=== PATIENT | female | born 1980 | race Caucasian/White ===

== ENCOUNTER 2020-09-09 16:40 | Emergency (ER) | payer BC, SELFPAY ==
[2020-09-09 16:53] VITALS: BP 119/80; PULSE 99; RESP 16; TEMP 36.8; O2SAT 99
--- NOTE | 2020-09-09 17:10 | ED.URI ---
HPI - URI/Sore Throat General Chief Complaint: Upper Respiratory Infection Stated Complaint: sore throat Source: patient Mode of arrival: ambulatory Limitations: no limitations History of Present Illness HPI Narrative: Patient is a 39-year-old female who presents complaining of sore throat x2 days. She reports mild allergy-like symptoms yesterday, denies fever. Reports exposure to strep throat and potentially Covid at work. Patient is in no acute distress at this time, has not MD elicited complaint: sore throat Related Data Home Medications Medication Instructions Recorded Confirmed escitalopram oxalate 20 mg PO DAILY 09/09/20 09/09/20 Allergies Allergy/AdvReac Type Severity Reaction Status Date / Time No Known Allergies Allergy Verified 09/09/20 17:09 Review of Systems Review of Systems: Narrative: CONSTITUTIONAL: Denies fever, chills, or sweats. EYES: Denies visual changes, redness, or discharge. ENT: Reports sore throat CARDIOVASCULAR: Denies chest pain, palpitations, or edema. RESPIRATORY: Denies cough or dyspnea. GASTROINTESTINAL: Denies abdominal pain, nausea, vomiting, or diarrhea. GENITOURINARY: Denies dysuria or hematuria. SKIN: Denies rash or itching. MUSCULOSKELETAL: Denies back pain, joint pain, or myalgia. NEUROLOGIC: Denies headache, numbness, dizziness, or weakness. PSYCHIATRIC: Denies anxiety or depression. [facility] Past Medical History Medical History (Updated 09/09/20 @ 17:17 by SOL Nicolas) Anxiety Bronchitis Depression Ectopic GERD (gastroesophageal reflux disease) Migraines No significant past medical history PVCs (premature ventricular contractions) Spontaneous pneumothorax Social History Social History (Updated 09/09/20 @ 17:13 by SOL Nicolas) Smoking status: Current every day smoker Tobacco type: e-cigarettes/vaping Alcohol intake: never Substance use: never Living arrangements: with family Exam Narrative: Exam Narrative: GENERAL: Well-appearing, well-nourished, and in no acute distress. HEAD: Normocephalic, atraumatic. EYES: No redness or drainage. ENT: Mucous membranes pink and moist. Throat normal mild erythema, no edema or exudate. Uvula midline. NECK: AROM. Supple. No lymphadenopathy. CHEST: No respiratory distress. EXTREMITIES: Normal range of motion. SKIN: Warm, dry, no rash. NEURO: No focal deficits. Alert and oriented x3. Gait steady. PSYCH: Normal affect. No signs of depression or anxiety. Course Vital Signs Vital signs: Vital Signs Temperature 36.8 C 09/09/20 16:53 Pulse Rate 99 09/09/20 16:53 Respiratory Rate 16 09/09/20 16:53 Blood Pressure 119/80 09/09/20 16:53 Pulse Oximetry 99 09/09/20 16:53 Temperature 36.8 C 09/09/20 16:53 Pulse Rate 99 09/09/20 16:53 Respiratory Rate 16 09/09/20 16:53 Blood Pressure 119/80 09/09/20 16:53 Pulse Oximetry 99 09/09/20 16:53 MDM - URI/Sore Throat MDM Narrative Medical decision making narrative: Patient's rapid staff and influenza are negative at this time. Patient to be sent for Covid testing. Patient aware of the need for quarantine until testing completed. Patient is stable for discharge home with outpatient follow-up as needed. Patient is aware if she develops chest pain or shortness of breath, that she is to go to the emergency department for further evaluation. Differential Diagnosis Differential diagnosis: Likely upper respiratory infection, viral infection, bronchitis and pharyngitis Medical Records Attestation: I reviewed the patient's medical records. Lab Data Attestation: I reviewed the patient's lab results. Critical Care Time Critical Care Time Critical Care Time: No Discharge Plan Discharge Clinical Impression: Encounter for screening laboratory testing for COVID-19 virus Upper respiratory infection Qualifiers: URI type: unspecified URI Qualified Code(s): J06.9 - Acute upper respiratory infection, unsp
== END 2020-09-09 17:20 | disposition home or self-care (01) ==
PROVIDERS: Emergency Provider Nurse Practitioner; PCP Physician Assistant
DX: Z20.828 Contact with and (suspected) exposure to other viral communicable diseases (principal); J06.9 Acute upper respiratory infection, unspecified; K21.9 Gastro-esophageal reflux disease without esophagitis; F17.200 Nicotine dependence, unspecified, uncomplicated; F41.9 Anxiety disorder, unspecified; F32.9 Major depressive disorder, single episode, unspecified
CPT/HCPCS: 87081; 87804; 87880; 99213; G0463

== ENCOUNTER → 2020-09-11 | Outpatient (NON) | payer BC, SELFPAY ==
[2020-09-11 19:47] LABS: SARS-CoV-2 RNA PCR Negative
== END | disposition home or self-care (01) ==
LOC: ANHCOVIDDT 07:03
PROVIDERS: PCP Physician Assistant; Visit Provider Nurse Practitioner
DX: Z20.828 Contact with and (suspected) exposure to other viral communicable diseases (principal)
CPT/HCPCS: 87635; C9803; U0003

== ENCOUNTER 2020-09-20 06:53 | Outpatient (NON) | payer BC, SELFPAY ==
[2020-09-20 21:00] LABS: SARS-CoV-2 RNA PCR Positive
== END 2020-09-20 06:54 ==
LOC: ANHCOVIDDT 07:08
PROVIDERS: PCP Physician Assistant; Visit Provider Physician Assistant
DX: U07.1 COVID-19 (principal)
CPT/HCPCS: 87635; C9803; U0003

== ENCOUNTER 2020-09-20 10:51 | Outpatient (CLI) | payer BC, SELFPAY ==
--- NOTE | ~2020-09-20 | XR_ITS ---
EXAMINATION: XR chest 2V EXAM DATE: 09/20/2020 11:15 INDICATION: Cough, loss of taste, smell 1-2 days ago. COVID symptoms. TECHNIQUE: Frontal and lateral projections of the chest obtained and reviewed. Comparison is made to prior examination from 04/28/2018. FINDINGS: Left apical suture material. The lungs are clear. There are no pleural effusions. The car diomediastinal silhouette is within normal limits. There is no pneumothorax suspected. The bones an d soft tissues are unremarkable. IMPRESSION: No acute cardiopulmonary findings. Reviewed, dictated and finalized at location A. YLENE BURNER
== END 2020-09-20 10:52 | disposition home or self-care (01) ==
PROVIDERS: PCP Physician Assistant; Visit Provider Physician Assistant
DX: R05 Cough (principal)
CPT/HCPCS: 71046

== ENCOUNTER 2021-02-04 14:38 | Emergency (ER) | payer BC, SELFPAY ==
--- NOTE | 2021-02-04 14:49 | ED.GENADULT ---
HPI - General Adult General Chief complaint: Upper Respiratory Infection Stated complaint: sore throat/dizzy Time Seen by Provider: 02/04/21 14:49 Source: patient, RN notes reviewed and old records reviewed Mode of arrival: ambulatory Limitations: no limitations History of Present Illness HPI narrative: 40 year old female who presents to [facility] care with complaints of sore throat, dry cough,some feelings of nasal congestion and mild shortness of breath for the past 3 day with some intermittent dizziness. Patient states that she had COVID in September of 2020. Patient states that her throat aches rates it a 4/10 and states that pain increases with swallowing. She verbalizes tactile fever with some chills or sweats, has taken some Dayquil for her symptoms. Patient has even and nonlabored respirations, with no tachypnea or accessory muscle use, breath sounds clear and present in all lung brownlee on auscultation. MD complaint: sore throat Onset (ago): day(s) (3) Severity: moderate Severity scale (1-10): 4 Quality: aching Pain Consistency: constant Relieving factors: eating and other (swallowing) Exacerbating factors: eating Associated symptoms: cough, fever/chills, shortness of breath and other (dizziness intermittently, sinus congestion) Treatments prior to arrival: other (Dayquil) Related Data Home Medications Medication Instructions Recorded Confirmed escitalopram oxalate 20 mg PO DAILY 09/09/20 02/04/21 bupropion HCl 300 mg PO DAILY 02/04/21 02/04/21 Allergies Allergy/AdvReac Type Severity Reaction Status Date / Time No Known Allergies Allergy Verified 02/04/21 15:10 Review of Systems Review of Systems: Narrative: CONSTITUTIONAL: Tactile fever, chills, or sweats. EYES: Denies visual changes, redness, or discharge. ENT: Positive rhinorrhea, congestion, sore throat, denies otalgia. CARDIOVASCULAR: Denies chest pain, palpitations, or edema. RESPIRATORY: Positive dry cough some mild dyspnea with exertion GASTROINTESTINAL: Denies abdominal pain, nausea, vomiting, or diarrhea. GENITOURINARY: Denies dysuria or hematuria. SKIN: Denies rash or itching. MUSCULOSKELETAL: Denies back pain, joint pain, or myalgia. NEUROLOGIC: Denies headache, numbness, or weakness.intermittent dizziness PSYCHIATRIC: Positive history of anxiety or depression. All systems reviewed & are unremarkable except as noted in HPI and below PMFSH Past Medical History Medical History (Updated 02/06/21 @ 15:14 by Evie Ovalle NP) Anxiety Bronchitis Depression Ectopic , tubal removal of fallopian tube GERD (gastroesophageal reflux disease) Migraines No significant past medical history PVCs (premature ventricular contractions) Spontaneous pneumothorax UTI (urinary tract infection) Surgical History Surgical History (Updated 02/04/21 @ 15:02 by Evie Ovalle NP) Previous section Social History Social History (Updated 02/04/21 @ 15:02 by Evie Ovalle NP) Smoking status: Current every day smoker Tobacco type: e-cigarettes/vaping Alcohol intake: never Substance use: never Living arrangements: with family Gender identity (if verbalized by the patient): Female Comments At time of signature, agree with nursing past medical, surgical, social and family history. There is no relevant family history pertinent to the presenting complaint Exam Narrative: Exam Narrative: GENERAL: Well-appearing, well-nourished, and in no acute distress. HEAD: Normocephalic, atraumatic. EYES: PERRLA and EOMI. ENT: Nares red, clear rhinorrhea no epistaxis. Mucous membranes moist.TM's normal with good light reflex, throat red with no lesions or exudates, tonsils enlarged and swollen with pain with swallowing, post nasal drainage noted NECK: Supple.no lymphadenopathy CHEST: Clear to auscultation. No respiratory distress.dry cough, lung sounds present in all lung brownlee. SAO2 100% on room air. HEART: Regular rate and rhythm. No murmur
[2021-02-04 14:50] VITALS: BP 131/85; PULSE 84; RESP 12; TEMP 37.5; O2SAT 100
== END 2021-02-04 15:25 | disposition home or self-care (01) ==
PROVIDERS: Emergency Provider Registered Nurse; PCP Physician Assistant
DX: R42 Dizziness and giddiness (principal); J02.9 Acute pharyngitis, unspecified; F17.200 Nicotine dependence, unspecified, uncomplicated; K21.9 Gastro-esophageal reflux disease without esophagitis; F41.9 Anxiety disorder, unspecified; F32.9 Major depressive disorder, single episode, unspecified
CPT/HCPCS: 87081; 87880; 99213; G0463

== ENCOUNTER 2021-06-14 10:10 | Emergency (ER) | payer BC, SELFPAY ==
[2021-06-14 10:19] VITALS: BP 112/68; PULSE 106; RESP 15; TEMP 36.6; O2SAT 98
[2021-06-14 10:27] LABS: Basophils Percent Auto 0.4 % (0.2-1.2); Eosinophils Percent Auto 0.1 % (0-4.4); Hematocrit 39.1 % (37.0-47.0); Hemoglobin 12.7 g/dL (12.0-15.0); Immature Granulocyte Absolute 0.04 K/mm3 (0.00-0.031); Immature Granulocyte Percent A 0.4 % (0-0.5); Lymphocytes Absolute Auto 1.22 K/mm3 (0.9-3.2); Lymphocytes Percent Auto 12.3 % (18.3-44.2); Mean Corpuscular HGB Conc 32.5 g/dl (32-36); Mean Corpuscular Hemoglobin 30.1 pg (26-34); Mean Corpuscular Volume 92.7 fl (80-100); Mean Platelet Volume 9.9 fl (7.4-10.4); Monocytes Absolute Auto 0.8 K/mm3 (0.1-0.6); Monocytes Percent Auto 8.5 % (2.6-8.5); Neutrophils Absolute Auto 7.8 K/mm3 (1.3-6.7); Neutrophils Percent Auto 78.3 % (45.5-73.1); Platelet Count Result 221 k/mm3 (150-375); Red Blood Count 4.22 M/mm3 (4.2-5.4); Red Cell Distribution Width 13.2 % (11.5-14.5); White Blood Count 9.9 K/mm3 (4.5-10.0)
[2021-06-14 11:02] LABS: Alanine Aminotransferase 29 U/L (4-35); Albumin Level 3.7 g/dL (3.5-5.1); Alkaline Phosphatase 58 U/L (38-126); Anion Gap 6 mmol/L (8-16); Aspartate Amino Transferase 28 U/L (14-36); Bilirubin,Total 0.2 mg/dL (0.2-1.3); Blood Urea Nitrogen 12 mg/dL (7-17); Calcium 9.3 mg/dL (8.4-10.2); Carbon Dioxide 29 mmol/L (22-30); Chloride 105 mmol/L (98-107); Estimated CRCL calculation 62 ml/min; Estimated Glomerular Filt Rate > 60; Glucose 81 mg/dL (65-110); Lipase 37 U/L (23-300); Potassium 3.1 mmol/L (3.4-5.0); Sodium 140 mmol/L (137-145)
--- NOTE | 2021-06-14 11:21 | ED.ABDPAIN ---
HPI - Abdominal Pain General Chief Complaint: Abdominal Pain Stated Complaint: right flank pain Time Seen by Provider: 06/14/21 11:10 History of Present Illness HPI narrative: Right mid back pain for the past few days. She reports that she had an outpatient UA and x-rays done that were all negative. The pain is worse with breathing and twisting movements. She had a fever of 102 this morning. No urinary symptoms. No cough, congestion, sob. She has a h/o kidney infection. Related Data Home Medications Medication Instructions Recorded Confirmed escitalopram oxalate 20 mg PO DAILY 09/09/20 02/04/21 bupropion HCl 300 mg PO DAILY 02/04/21 02/04/21 Allergies Allergy/AdvReac Type Severity Reaction Status Date / Time No Known Allergies Allergy Verified 06/14/21 12:04 Review of Systems Review of Systems: All systems reviewed & are unremarkable except as noted in HPI and below Constitutional: Constitutional: Reports fever(s) and Denies weakness Eyes: Eyes: Reports no additional eye complaints ENT: Denies sore throat Cardiovascular: Cardiovascular: Denies chest pain Respiratory: Respiratory: Denies cough and Denies dyspnea Gastrointestinal: Gastrointestinal: Denies abdominal pain, Denies constipation, Denies diarrhea, Reports nausea and Denies vomiting Genitourinary: Genitourinary: Denies hematuria and Denies dysuria Musculoskeletal: Musculoskeletal: Reports back pain PMFSH Past Medical History Medical History Anxiety Bronchitis Depression Ectopic , tubal removal of fallopian tube GERD (gastroesophageal reflux disease) Migraines No significant past medical history PVCs (premature ventricular contractions) Spontaneous pneumothorax UTI (urinary tract infection) Surgical History Surgical History Previous section Social History Social History Smoking status: Current every day smoker Tobacco type: e-cigarettes/vaping Alcohol intake: never Substance use: never Gender identity (if verbalized by the patient): Female Exam Const: General: healthy appearing, no acute distress and alert Orientation/consciousness: patient oriented x3 HENMT: Head: normal to inspection Neck: Neck: normal visual inspection Resp: Effort & Inspection: normal respiratory effort Auscultation: clear to auscultation bilaterally, no rales, no rhonchi and no wheezes Cardio: Jugular venous distension: no JVD Rate: regular rate Rhythm: regular rhythm Heart sounds: no murmurs GI: Inspection: non-distended GI Palp: Yes Soft to palpation and No Tenderness to palpation present (GI) : General: Yes CVA tenderness on the right Skin: General skin exam: normal color Neuro: General: patient oriented x3 and moves all extremities Speech: normal speech Extrem: General: normal to inspection Psych: Appearance: well kempt Affect: normal affect Course Vital Signs Vital signs: Vital Signs Temperature 36.6 C 06/14/21 10:19 Pulse Rate 106 H 06/14/21 10:19 Respiratory Rate 15 06/14/21 10:19 Blood Pressure 112/68 06/14/21 10:19 Pulse Oximetry 98 06/14/21 10:19 Temperature 36.6 C 06/14/21 10:19 Pulse Rate 94 06/14/21 12:07 Respiratory Rate 16 06/14/21 12:07 Blood Pressure 101/67 06/14/21 12:07 Pulse Oximetry 99 06/14/21 12:07 MDM - Abdominal Pain MDM Narrative Medical decision making narrative: UA consistent with infection. Clinically she may have mild pyelonephritis. She seems to be stable for outpatient treatment. Medical Records Attestation: I reviewed the patient's medical records. Lab Data Attestation: I reviewed the patient's lab results. Result diagrams: 06/14/21 10:17 06/14/21 10:17 Labs: Lab Results 06/14/21 06/14/21 06/14/21 Range/Units 10:17 10:17 10
[2021-06-14 11:35] LABS: Add Urine Microscopic? YES; Appearance Urine Cloudy (Clear); Bacteria Urine Trace /hpf; Bilirubin Urine Negative (Negative); Blood Urine Negative (Negative); Color Urine Yellow (Yellow); Glucose Urine UA Negative (Negative); Ketones Urine Negative (Negative); Leukocyte Esterase Ur 3+ LEU/UL (Negative); Mucus Urine Rare /lpf; Nitrate Urine Negative (Negative); Protein Urine 1+ mg/dL (Negative); RBC Urine 0-2 /hpf (0-2); Specific Grav Ur 1.013 (1.001-1.035); Squamous Epithelial Cell Urine Many /hpf (Few); Urobilinogen Urine Negative mg/dL (<2.0); WBC Urine >75 /hpf
[2021-06-14 12:07] VITALS: BP 101/67; PULSE 94; RESP 16; O2SAT 99
[2021-06-14] MEDS: CEFDINIR 300 MG CAPSULE PO (12:54)
[2021-06-14 13:39] VITALS: BP 101/66; PULSE 87; RESP 18; TEMP 36.2; O2SAT 100
== END 2021-06-14 13:42 | disposition home or self-care (01) ==
PROVIDERS: Emergency Provider Emergency Medicine; PCP Physician Assistant
DX: N39.0 Urinary tract infection, site not specified (principal); F41.9 Anxiety disorder, unspecified; F32.9 Major depressive disorder, single episode, unspecified; F17.290 Nicotine dependence, other tobacco product, uncomplicated; Z86.69 Personal history of other diseases of the nervous system and sense organs; Z87.440 Personal history of urinary (tract) infections
CPT/HCPCS: 36415; 80053; 81001; 81025; 83690; 85025; 87077; 87086; 87088; 87186; 99283; A9270

== ENCOUNTER 2022-01-13 10:42 | Emergency (ER) | payer SELFPAY ==
[2022-01-13 10:56] VITALS: BP 126/81; PULSE 92; RESP 18; TEMP 36.6; O2SAT 100
--- NOTE | 2022-01-13 11:09 | ED.LOWEXIN ---
HPI - Extremity Injury (Lower) General Chief Complaint: Extremity Injury, Lower Stated Complaint: rt foot pain Time Seen by Provider: 01/13/22 11:00 Source: patient Mode of arrival: ambulatory Limitations: no limitations History of Present Illness HPI Narrative: Ms. Valdez is a 41-year-old female patient presenting to the clinic today with complaints of right foot pain. She initially had an injury at work when she dropped some egg cartons on her foot back on December 30. Reports the pain is worse with ambulation and weightbearing pain is to the top of her foot near her toes and also to the bottom of her foot. She denies any other injury since this initial injury. No bruising or swelling is noted. Has changed her shoes as she has changed jobs and is on her feet more often walking on concrete. Has tried to take some ibuprofen without relief. Bearing weight her pain is a 10 out of 10 and at rest she has 0 pain. Related Data Home Medications Medication Instructions Recorded Confirmed escitalopram oxalate 20 mg PO DAILY 09/09/20 02/04/21 bupropion HCl 300 mg PO DAILY 02/04/21 02/04/21 dextroamphetamine-amphetamine 30 mg PO DAILY 01/13/22 01/13/22 Allergies Allergy/AdvReac Type Severity Reaction Status Date / Time No Known Allergies Allergy Verified 01/13/22 11:10 Review of Systems Review of Systems: Pertinent positives per HPI. Patient denies any fever, chills, rash, headache, visual changes, dizziness, cough, runny nose, sore throat, shortness of breath, chest pain, palpitations, nausea, vomiting, diarrhea, constipation, abdominal pain, or any urinary issues. [facility] Past Medical History Medical History Anxiety Bronchitis Depression Ectopic , tubal removal of fallopian tube GERD (gastroesophageal reflux disease) Migraines No significant past medical history PVCs (premature ventricular contractions) Spontaneous pneumothorax UTI (urinary tract infection) Surgical History Surgical History Previous section Social History Social History Smoking status: Current every day smoker Tobacco type: e-cigarettes/vaping Alcohol intake: never Substance use: never Gender identity (if verbalized by the patient): Female Comments At the time of my signature, I reviewed and agree with the nursing past medical, surgical, social, and family history. There is no relevant family history pertinent to the patient complaint. Exam Narrative: General: Well-developed, well nourished, in no apparent distress Cardio: Regular rate and rhythm, s1 and s2 normal, no murmur appreciated. Resp: Clear to auscultation bilaterally, no rhonchi, rales, wheezing or rubs. Musculoskeletal: No deformity, no bruising or swelling ,non-tender to palpation, grossly normal range of motion, no pain with plantar flexion or dorsiflexion against resistance, muscle strength strong and equal, pedal pulses strong, no edema, no cyanosis, pain with bearing weight to the right distal dorsal and plantar foot,normal gait and station Course Course Emergency Course: Portions of this record may have been created with voice recognition software. Level of Care: Express Care Visit Vital Signs Vital signs: Vital Signs Temperature 36.6 C 01/13/22 10:56 Pulse Rate 92 01/13/22 10:56 Respiratory Rate 18 01/13/22 10:56 Blood Pressure 126/81 01/13/22 10:56 Pulse Oximetry 100 01/13/22 10:56 Temperature 36.6 C 01/13/22 10:56 Pulse Rate 92 01/13/22 10:56 Respiratory Rate 18 01/13/22 10:56 Blood Pressure 126/81 01/13/22 10:56 Pulse Oximetry 100 01/13/22 10:56 Vital signs reviewed MDM - Extremity Injury (Lower) MDM Narrative Medical decision making narrative: Upon exam I do not feel that an x-ray is a necessity at this time as she son
== END 2022-01-13 11:24 | disposition home or self-care (01) ==
PROVIDERS: Emergency Provider Nurse Practitioner Family; PCP Physician Assistant
DX: M79.671 Pain in right foot (principal); F17.290 Nicotine dependence, other tobacco product, uncomplicated; K21.9 Gastro-esophageal reflux disease without esophagitis; F41.9 Anxiety disorder, unspecified; F32.A Depression, unspecified
CPT/HCPCS: 99213; G0463

== ENCOUNTER 2022-12-19 18:45 | Emergency (ER) | payer OTHER, SELFPAY ==
--- NOTE | 2022-12-19 19:12 | ED.GENADULT ---
HPI - General Adult General Chief complaint: Upper Respiratory Infection Stated complaint: headache behind right eye Time Seen by Provider: 12/19/22 19:15 Source: patient, RN notes reviewed and old records reviewed Mode of arrival: ambulatory Limitations: no limitations History of Present Illness HPI narrative: 42-year-old female presents to the [facility] with reports intermittent headache behind the right eye for the last 10 days. reports intermittent blurry vision. Reports intermittent nausea and vomiting. Reports intermittent dizziness. States that she is taking Advil with no relief Patient reports history of migraines has not contacted primary care provider Onset (ago): day(s) () Related Data Home Medications Medication Instructions Recorded Confirmed escitalopram oxalate 20 mg tablet 10 mg PO DAILY 09/09/20 12/19/22 bupropion HCl 300 mg 24 hr tablet, 150 mg PO DAILY 02/04/21 12/19/22 extended release dextroamphetamine-amphetamine ER 20 mg PO DAILY 01/13/22 12/19/22 10 mg 24hr capsule,extend release Allergies Allergy/AdvReac Type Severity Reaction Status Date / Time No Known Allergies Allergy Verified 12/19/22 19:20 Review of Systems Review of Systems: All systems reviewed & are unremarkable except as noted in HPI and below Constitutional: Constitutional: Reports no additional constitutional complaints Eyes: Eyes: Reports no additional eye complaints ENT: Reports system reviewed and no additional complaints, except as documented Cardiovascular: Cardiovascular: Reports no additional cardiovascular complaints, Denies chest pain and Denies dyspnea Respiratory: Respiratory: Reports no additional respiratory complaints, Denies chest congestion, Denies cough and Denies dyspnea Gastrointestinal: Gastrointestinal: Reports no additional gastrointestinal complaints, Denies abdominal pain, Denies nausea and Denies vomiting Musculoskeletal: Musculoskeletal: Reports no additional musculoskeletal complaints Integumentary/Breasts: Skin/Breast: Reports system reviewed and no additional complaints, except as docu Neurologic: Reports as per HPI and Reports dizziness Psychiatric: Psychiatric: Reports no additional psychiatric complaints Allergic/Immunologic: Allergic/Immunologic: Reports no additional allergic/immunologic complaints PMFSH Past Medical History Medical History Anxiety Bronchitis Depression Ectopic , tubal removal of fallopian tube GERD (gastroesophageal reflux disease) Migraines No significant past medical history PVCs (premature ventricular contractions) Spontaneous pneumothorax UTI (urinary tract infection) Surgical History Surgical History Previous section Social History Social History Smoking status: Current every day smoker Tobacco type: e-cigarettes/vaping Alcohol intake: never Substance use: never Living arrangements: with family Gender identity (if verbalized by the patient): Female Comments At the time of my signature, I reviewed and agree with the nursing past medical, surgical, social, and family history. There is no relevant family history pertinent to the patient complaint. Exam Const: General: cooperative, healthy appearing, comfortable, no acute distress, well developed, alert and well nourished Nutritional Appearance: well nourished Orientation/consciousness: patient oriented x3 Limitations: no limitations HENMT: Head: normal to inspection Ears: hearing grossly normal bilaterally and external ears normal Face/Nose/Sinus: Normal external nose present, Normal nares present, Normal nasal mucous membranes and turbinates present and normal facial exam Face and sinus: normal facial exam Mouth: Yes Normal oral and palatal mucosa present, Yes lip normal and Yes moist mu
[2022-12-19 19:26] VITALS: BP 131/85; PULSE 85; RESP 18; TEMP 36.7; O2SAT 100
[2022-12-19] MEDS: KETOROLAC (*BKC) 60 MG/2 ML VIAL IM (19:38)
== END 2022-12-19 19:48 | disposition home or self-care (01) ==
PROVIDERS: Emergency Provider Nurse Practitioner; PCP Physician Assistant
DX: R51.9 Headache, unspecified (principal); F17.290 Nicotine dependence, other tobacco product, uncomplicated
CPT/HCPCS: 96372; 99213; G0463; J1885

== ENCOUNTER 2024-01-25 10:54 | Outpatient (CLI) | payer BC, SELFPAY ==
--- NOTE | ~2024-01-25 | US_ITS ---
EXAMINATION: US soft tissue lower back DATE: 01/25/2024 11:11 INDICATION: Localized swelling, mass and lump, trunk. TECHNIQUE: Multiple grayscale and Doppler ultrasound images of the lower back were obtained. COMPARISON: CT abdomen and pelvis 08/05/2019 FINDINGS: In the patient's area of concern in left lower back, there is a 5 mm hyperechoic subcutaneo us mass. IMPRESSION: 1. Ill-defined 5 mm hyperechoic subcutaneous mass in left lower back in the patient's area of concern , likely inflammation. Reviewed, dictated and finalized at location E. IMPRESSION: 1. Ill-defined 5 mm hyperechoic subcutaneous mass in left lower back in the pat ient's area of concern, likely inflammation.
== END 2024-01-25 10:55 ==
LOC: GOSHIMG 10:55
PROVIDERS: PCP Physician Assistant; Visit Provider Physician Assistant
DX: R22.2 Localized swelling, mass and lump, trunk (principal)
CPT/HCPCS: 76705